=== PATIENT | female | born 1960 | race Two or more races ===

== ENCOUNTER 2017-12-10 11:11 | Outpatient (CLI) | payer OTHER ==
[~2017-12-10 11:11] MED LIST: NABUMETONE500 MG PO; PERCOCET 5/3251 TAB PO; SEPTRA DS TABLE1 TAB PO
== END 2017-12-10 11:25 | disposition home or self-care (01) ==
LOC: SONOGRAMA 11:11
DX: M25.511 Pain in right shoulder (principal)